=== PATIENT | male | born 1940 | race Caucasian/White ===

== ENCOUNTER 2020-11-14 05:38 | Inpatient (IN) ==
[2020-11-14] MEDS ORDERED: Sodium Citrate/Citric Acid LIQ 15 ML UDC PO ONE (06:00)
[2020-11-14] MEDS ORDERED: Lactated Ringers 1000 ml BAG 1,000 ML IV SCH (06:00)
[2020-11-14] MEDS ORDERED: Buffered Lidocaine 1% SYRIN 1 ml INTRADERM ONE (06:00)
[2020-11-14] MEDS ORDERED: ceFAZolin 2 GM PREMIX 2 GM/50 ML BAG ONE (06:11)
[2020-11-14] MEDS ORDERED: Sodium Citrate/Citric Acid LIQ 15 ML UDC ONE (06:11)
[2020-11-14] MEDS ORDERED: Lidocaine 1% MPF 5 ML VIAL ONE (07:13)
[2020-11-14] MEDS ORDERED: ROPIVACAINE 5 MG/ML 30 ML BTL (0.5%) ONE (07:14)
[2020-11-14] MEDS ORDERED: Midazolam 5 mg/5 ml VIAL 1 mg/ml 5 ml VIAL (5 mg) ONE (07:15)
[2020-11-14] MEDS ORDERED: Dexamethasone IV 4 MG/ML VIAL 1 ml VIAL ONE ×2 (07:15→08:18)
[2020-11-14] MEDS ORDERED: fentaNYL 100 mcg/2 ml 50 MCG/ML VIAL ONE (07:16)
[2020-11-14] MEDS ORDERED: Propofol 10 MG/ML 20 ML BTL ONE (07:16)
[2020-11-14] MEDS ORDERED: Lidocaine 2% PF 5 ML VIAL ONE (07:16)
[2020-11-14] MEDS ORDERED: Midazolam 2 mg/2 ml VIAL 1 mg/ml 2 ml VIAL (2 mg) ONE (07:16)
[2020-11-14] MEDS ORDERED: Rocuronium 50 mg VIAL 10 mg/ml 5 ml VIAL (50 mg) ONE (07:19)
[2020-11-14] MEDS ORDERED: fentaNYL 100 mcg/2 ml 50 MCG/ML VIAL IV PRN (08:05)
[2020-11-14] MEDS ORDERED: Naloxone 0.4 mg VIAL 0.4 mg/ml 1 ml VIAL IV PRN (08:05)
[2020-11-14] MEDS ORDERED: Acetaminophen IV 1 GM/100ML 1,000 MG/100 ML VIAL IVPB PRN (08:05)
[2020-11-14] MEDS ORDERED: HYDROmorphone 1 MG/1 ML SYRINGE IV PRN (08:05)
[2020-11-14] MEDS ORDERED: Ondansetron 4 mg VIAL 2 MG/ML 2 ml VIAL IV PRN ×2 (08:05→11:59)
[2020-11-14] MEDS ORDERED: Phenylephrine 40 mcg/mL 10mL (400mcg) SYRINGE ONE (08:18)
[2020-11-14] MEDS ORDERED: EPHEDrine (Pressors) 50 MG/ML VIAL ONE (08:18)
[2020-11-14] MEDS ORDERED: Ondansetron 4 mg VIAL 2 MG/ML 2 ml VIAL ONE (08:18)
[2020-11-14] MEDS ORDERED: Phenylephrine IV 10 MG/ML 1 ml VIAL ONE ×2 (08:34→11:40)
[2020-11-14] MEDS ORDERED: diPHENhydraMINE IV 50 MG/ML 1 ml VIAL (BENADRYL) IV PRN (11:59)
[2020-11-14] MEDS ORDERED: diPHENhydraMINE 25 mg TAB PO PRN (11:59)
[2020-11-14] MEDS ORDERED: Morphine 2 MG/ML SYRINGE IV PRN (11:59)
[2020-11-14] MEDS ORDERED: Magnesium Hydroxide LIQ 30 ML UDC PO PRN (11:59)
[2020-11-14] MEDS ORDERED: Lactulose 30 ml UDC PO PRN (11:59)
[2020-11-14] MEDS ORDERED: Ondansetron ODT 4 mg TAB 4 MG TAB PO PRN (11:59)
[2020-11-14] MEDS: Lactated Ringers 1000 ml BAG 1,000 ML IV SCH (13:02)
[2020-11-14 14:31] LABS: Hematocrit 40 % (42-52); Hemoglobin 13.5 g/dL (14.0-18.0)
[2020-11-14] MEDS: ceFAZolin 1 GM ADVAN 1 GM in NS 0.9% 50 ML 50 ML IVPB SCH ×2 (16:29→23:25)
[2020-11-14] MEDS ORDERED: SILDENAFIL 25 MG PO SCH (21:00)
[2020-11-14] MEDS: Magnesium Hydroxide LIQ 30 ML UDC PO SCH (21:17)
[2020-11-14] MEDS: SILDENAFIL 20 MG PO SCH (22:23)
[2020-11-15] MEDS: Lactated Ringers 1000 ml BAG 1,000 ML IV SCH (02:21)
[2020-11-15 06:52] LABS: ABS Lymphocytes 0.4 10^3/ul (1.0-4.8); ABS Neutrophils 12.3 10^3/ul (1.5-7.7); Hematocrit 35 % (42-52); Hemoglobin 12.2 g/dL (14.0-18.0); Lymphocyte % 2.8 %; Mean Corpuscular HGB Conc 35 g/dL (31-36); Mean Corpuscular Hemoglobin 31 pg (27-31); Mean Corpuscular Volume 90 fL (80-94); Mean Platelet Volume 8.7 fL (7.4-10.4); Platelet Count 211 10^3/uL (150-450); Red Blood Count 3.89 10^6 /uL (4.18-5.48); Red Cell Distribution Width 15 % (10-15); White Blood Count 13.7 10^3/uL (3.5-10.8)
[2020-11-15 07:08] LABS: Calcium 8.4 mg/dL (8.6-10.3); EGFR African American 90.1 (>60); EGFR Non-African American 74.5 (>60); Potassium 4.3 mmol/L (3.5-5.0)
[2020-11-15] MEDS ORDERED: NS 0.9% 500 ml BAG 500 ML IV ONE (08:26)
[2020-11-15] MEDS: ceFAZolin 1 GM ADVAN 1 GM in NS 0.9% 50 ML 50 ML IVPB SCH (08:31)
[2020-11-15] MEDS: Vitamin THERAPEUTIC TAB PO SCH (08:36)
[2020-11-15] MEDS: Magnesium Hydroxide LIQ 30 ML UDC PO SCH ×2 (08:42→19:24)
[2020-11-15] MEDS: SILDENAFIL 20 MG PO SCH ×3 (09:38→19:24)
[2020-11-16] MEDS: Magnesium Hydroxide LIQ 30 ML UDC PO SCH (08:07)
[2020-11-16] MEDS: SILDENAFIL 20 MG PO SCH (08:09)
[2020-11-16] MEDS: Vitamin THERAPEUTIC TAB PO SCH (08:12)
[2020-11-16 14:40] VITALS: BP 110/60
== END 2020-11-16 15:30 | disposition home health service (06) | DRG 493 ==
LOC: OR 05:38 → SSU 13:21
PROVIDERS: ADMIT Orthopaedic Surgery; ATTEND Orthopaedic Surgery